=== PATIENT | male | born 1985 | race Caucasian/White ===

== ENCOUNTER 2017-01-04 20:04 | Emergency (ER) | payer OTHER ==
[~2017-01-04] VITALS: Ht 170.1 cm; Wt 61.2 kg
[2017-01-04] MEDS ORDERED: PREDNISONE10 MG PO (20:13)
== END 2017-01-04 20:29 | disposition home or self-care (01) ==
LOC: ED 20:04
DX: T65.91XA Toxic effect of unspecified substance, accidental (unintentional), initial encounter (principal); R03.0 Elevated blood-pressure reading, without diagnosis of hypertension; Z88.0 Allergy status to penicillin; Y92.9 Unspecified place or not applicable

== ENCOUNTER 2019-08-07 20:13 | Emergency (ER) | payer SELFPAY ==
[~2019-08-07] VITALS: Ht 165.1 cm; Wt 63.5 kg
[~2019-08-07 20:13] MED LIST: PREDNISONE10 MG PO
[2019-08-07] MEDS ORDERED: AMOXICILLIN500 M2 PO (20:42)
[2019-08-07] MEDS ORDERED: IBUPROFEN600 MG PO (20:42)
== END 2019-08-07 21:02 | disposition home or self-care (01) ==
LOC: ED 20:13
DX: K02.9 Dental caries, unspecified (principal); Z79.899 Other long term (current) drug therapy

== ENCOUNTER 2023-04-22 14:48 | Emergency (ER) | payer SELFPAY ==
[~2023-04-22] VITALS: Ht 167.6 cm; Wt 59.0 kg
[~2023-04-22 14:48] MED LIST changes: +AMOXICILLIN500 M2 PO; +IBUPROFEN600 MG PO
[2023-04-22] MEDS ORDERED: DEXTROAMPH SACC20 M1 PO (14:59)
== END 2023-04-22 16:57 | disposition left against medical advice (07) ==
LOC: ED 14:48
DX: K40.90 Unilateral inguinal hernia, without obstruction or gangrene, not specified as recurrent (principal); Z91.040 Latex allergy status; Z88.0 Allergy status to penicillin; F17.210 Nicotine dependence, cigarettes, uncomplicated